=== PATIENT | female | born 2000 | race Caucasian/White ===

== ENCOUNTER 2024-05-06 00:25 | Inpatient (IN) | payer BC ==
[2024-05-06] MEDS ORDERED: Carboprost Tromethamine 250 MCG/1 mL Vial IM PRN ×2 (02:04→20:14)
[2024-05-06] MEDS ORDERED: Sodium Chloride 0.9% 10 ML Syringe FLUSH PRN ×2 (02:04→20:14)
[2024-05-06] MEDS ORDERED: Misoprostol 200 MCG Tab PO PRN (02:04)
[2024-05-06] MEDS ORDERED: Sodium Chloride 0.9% 2.5 ML Syringe FLUSH PRN ×2 (02:04→20:14)
[2024-05-06] MEDS ORDERED: Lidocaine 1% 50 ML MDV INJECT PRN (02:04)
[2024-05-06] MEDS ORDERED: Water For Irrigation,Sterile 1,000 ML Container IRR PRN (02:04)
[2024-05-06] MEDS ORDERED: Methylergonovine 0.2 MG/1 ML Amp IM PRN (02:04)
[2024-05-06] MEDS ORDERED: Sodium Chloride 0.9% 20 ML SDV IV PRN (02:04)
[2024-05-06] MEDS ORDERED: Tranexamic Acid IN NACL,ISO-OS 1,000 MG in Premix Bag 1 BAG IV PRN (02:04)
[2024-05-06] MEDS ORDERED: Terbutaline 1 MG/ML SDV SUBCUT PRN (02:04)
[2024-05-06] MEDS ORDERED: Oxytocin/0.9 % Sodium Chloride 30 UNIT/500 ML BAG IV SCH ×2 (02:15→20:15)
[2024-05-06] MEDS: Butorphanol 2 MG/ML SDV IVPUSH PRN (02:39)
[2024-05-06] MEDS: Lactated Ringers 1,000 ML IV SCH (02:48)
[2024-05-06] MEDS: Oxytocin/0.9 % Sodium Chloride 30 UNIT/500 ML BAG IV SCH (02:51)
[2024-05-06 03:59] LABS: HEMATOCRIT 37.7 % (37.0-47.0); HEMOGLOBIN 12.4 g/dL (12.0-16.0); MEAN CORPUSCULAR HEMOGLOBIN 26.4 pg (28.0-32.0); MEAN CORPUSCULAR HGB CONC 32.9 g/dL (32.0-36.0); MEAN CORPUSCULAR VOLUME 80.2 fL (83.0-99.0); PLATELET COUNT,PLT 297 K/uL (150-400); WHITE BLOOD CELL COUNT,WBC 14.39 K/uL (3.9-11.3)
[2024-05-06] MEDS: Ondansetron 4 MG/2 ML SDV IVPUSH PRN (06:43)
[2024-05-06] MEDS: Ropivacaine HCl/PF 400 MG in Premix Bag 1 BAG EPIDUR SCH (07:03)
[2024-05-06] MEDS ORDERED: ePHEDrine 50 MG/ML SDV IVPUSH PRN (07:21)
[2024-05-06] MEDS ORDERED: Phenylephrine HCl In 0.9% NaCl 1 MG/10 ML Syringe IVPUSH PRN ×2 (07:21→20:12)
[2024-05-06] MEDS ORDERED: ePHEDrine 50 MG/ML SDV IM PRN (07:22)
[2024-05-06] MEDS ORDERED: dexmedeTOMIDine HCl 200 MCG/2 ML SDV EPIDUR SCH (07:30)
[2024-05-06] MEDS: Phenylephrine HCl In 0.9% NaCl 1 MG/10 ML Syringe ONE (10:15)
[2024-05-06] MEDS: Bupivacaine 0.5% 10 ML SDV INJECT ONE (10:16)
[2024-05-06] MEDS: Bupivacaine 0.5% 10 ML SDV ONE (10:16)
[2024-05-06] MEDS: Ropivacaine HCl/PF 200 ML ONE (10:16)
[2024-05-06] MEDS: Sodium Chloride 0.9% 1,000 ML IRR ONE (15:30)
[2024-05-06] MEDS ORDERED: Oxytocin 10 Units/1 ML SDV ONE (18:20)
[2024-05-06] MEDS ORDERED: EPINEPHrine 1 MG/1 ML Amp ONE (18:20)
[2024-05-06] MEDS ORDERED: Ketorolac 30 MG/ML SDV ONE (18:20)
[2024-05-06] MEDS ORDERED: Morphine PF 10 MG/10 ML SDV ONE (18:20)
[2024-05-06] MEDS ORDERED: Ropivacaine 0.5% 5 MG/ML 30 ML SDV ONE (18:20)
[2024-05-06] MEDS ORDERED: Bupivacaine 0.5% 10 ML SDV ONE (18:20)
[2024-05-06] MEDS ORDERED: Bupivacaine 0.25% 30 ML SDV ONE (18:20)
[2024-05-06] MEDS ORDERED: Ondansetron 4 MG/2 ML SDV ONE (18:20)
[2024-05-06] MEDS ORDERED: fentaNYL 100 MCG/2 ML SDV ONE (18:20)
[2024-05-06] MEDS ORDERED: ceFAZolin 1 GM Vial ONE (18:20)
[2024-05-06] MEDS ORDERED: Lidocaine 2% 5 ML SDV ONE ×3 (18:20→19:56)
[2024-05-06] MEDS ORDERED: Phenylephrine HCl In 0.9% NaCl 1 MG/10 ML Syringe ONE ×2 (18:46→19:38)
[2024-05-06] MEDS ORDERED: Azithromycin 500 MG Vial ONE (18:47)
[2024-05-06] MEDS ORDERED: Metoclopramide 10 MG/2 ML SDV IVPUSH PRN (20:12)
[2024-05-06] MEDS ORDERED: Morphine 2 MG/ML SYRINGE IVPUSH PRN (20:12)
[2024-05-06] MEDS ORDERED: Acetaminophen/oxyCODONE 325-5 MG Tab PO PRN (20:12)
[2024-05-06] MEDS ORDERED: droPERidol 5 MG/2 ML SDV IVPUSH PRN (20:12)
[2024-05-06] MEDS ORDERED: Ondansetron 4 MG/2 ML SDV IVPUSH PRN ×3 (20:12→20:14)
[2024-05-06] MEDS ORDERED: Naloxone 0.4 MG/ML SDV IVPUSH PRN (20:12)
[2024-05-06] MEDS ORDERED: Albuterol 0.083% 2.5 MG/3 ML Neb Soln NEB PRN (20:12)
[2024-05-06] MEDS ORDERED: HYDROmorphone 1 MG/ML Syringe IVPUSH PRN (20:12)
[2024-05-06] MEDS ORDERED: fentaNYL 50 MCG/ML SDV IVPUSH PRN (20:12)
[2024-05-06] MEDS ORDERED: fentaNYL 100 MCG/2 ML SDV IVPUSH PRN (20:12)
[2024-05-06] MEDS ORDERED: diphenhydrAMINE 50 MG/ML SDV IVPUSH PRN (20:12)
[2024-05-06] MEDS ORDERED: Nalbuphine 10 MG/1 ML Vial IVPUSH PRN (20:12)
[2024-05-06] MEDS ORDERED: oxyCODONE 5 MG Tab PO PRN (20:14)
[2024-05-06] MEDS ORDERED: Misoprostol 200 MCG Tab RECTAL PRN (20:14)
[2024-05-06] MEDS ORDERED: Tranexamic Acid 1,000 MG in Sodium Chloride 0.9% 100 ML IV PRN (20:14)
[2024-05-06] MEDS ORDERED: Methylergonovine 0.2 MG/1 ML Amp IM ONE (20:14)
[2024-05-06] MEDS ORDERED: Measles, Mumps & Rubella Vaccine 0.5 ML SDV SUBCUT ONE (20:14)
[2024-05-06] MEDS ORDERED: Acetaminophen 500 MG Tab PO SCH (20:30)
[2024-05-06] MEDS: Acetaminophen 1,000 MG in Premix Bag 1 BAG IV SCH (20:54)
[2024-05-06] MEDS ORDERED: metroNIDAZOLE 250 MG Tab PO SCH (21:00)
[2024-05-06] MEDS ORDERED: Cephalexin 500 MG Cap PO SCH (22:00)
[2024-05-06] MEDS: Docusate Sodium 100 MG Cap PO SCH (22:25)
[2024-05-07] MEDS: metroNIDAZOLE 250 MG Tab PO SCH (00:32)
[2024-05-07] MEDS: Ketorolac 30 MG/ML SDV IVPUSH SCH (00:32)
[2024-05-07] MEDS: Cephalexin 500 MG Cap PO SCH (00:32)
[2024-05-07 05:24] LABS: BASOPHILS ABSOLUTE AUTO 0.02 K/uL (0.00-0.20); BASOPHILS PERCENT AUTO 0.1 % (0.0-1.0); HEMATOCRIT 28.5 % (37.0-47.0); HEMOGLOBIN 9.3 g/dL (12.0-16.0); IMMATURE GRAN ABSOLUTE AUTO 0.06 K/uL (0.00-0.05); IMMATURE GRAN PERCENT AUTO 0.4 % (0.0-0.4); LYMPHOCYTES ABSOLUTE AUTO 1.49 K/uL (1.00-4.80); LYMPHOCYTES PERCENT AUTO 10.2 % (24.0-44.0); MEAN CORPUSCULAR HEMOGLOBIN 26.7 pg (28.0-32.0); MEAN CORPUSCULAR HGB CONC 32.6 g/dL (32.0-36.0); MEAN CORPUSCULAR VOLUME 81.9 fL (83.0-99.0); MEAN PLATELET VOLUME 9.9 fL (9.4-12.3); MONOCYTES ABSOLUTE AUTO 0.68 K/uL (0.00-0.80); MONOCYTES PERCENT AUTO 4.7 % (0.0-8.0); NEUTROPHILS ABSOLUTE AUTO 12.29 K/uL (1.80-7.70); NEUTROPHILS PERCENT AUTO 84.6 % (41.0-71.0); PLATELET COUNT,PLT 202 K/uL (150-400); RED BLOOD CELL COUNT 3.48 M/uL (4.10-5.30); WHITE BLOOD CELL COUNT,WBC 14.54 K/uL (3.9-11.3)
[2024-05-07] MEDS: Acetaminophen 500 MG Tab PO SCH (15:23)
[2024-05-07] MEDS: Ketorolac 30 MG/ML SDV IM ONE (18:00)
[2024-05-07] MEDS ORDERED: Sodium Ferric Gluconate Cmplex 125 MG in Sodium Chloride 0.9% 100 ML IV SCH (18:00)
[2024-05-07] MEDS ORDERED: oxyCODONE 5 MG Tab PO PRN (20:14)
[2024-05-08] MEDS: Ibuprofen 800 MG Tab PO SCH (00:03)
== END 2024-05-08 16:25 | disposition home or self-care (01) | DRG 540 ==
LOC: MW.OBCHECK 00:25 → MW.OB 00:26 → MW.OBCHECK 01:18 → OBSVTOIN 19:09 → MW.OB 05-07 00:58
PROVIDERS: ADMIT Obstetrics & Gynecology; ATTEND Obstetrics & Gynecology
PROC: 3E0R3BZ Introduction of Anesthetic Agent into Spinal Canal, Percutaneous Approach (ICD-10-PCS; 2024-05-06)
PROC: 00HU33Z Insertion of Infusion Device into Spinal Canal, Percutaneous Approach (ICD-10-PCS; 2024-05-06)
PROC: 10D00Z1 Extraction of Products of Conception, Low, Open Approach (ICD-10-PCS; principal; 2024-05-06 19:00)
DX: O48.0 Post-term pregnancy (principal); O99.214 Obesity complicating childbirth; O90.81 Anemia of the puerperium; Z37.0 Single live birth; O77.0 Labor and delivery complicated by meconium in amniotic fluid; O76 Abnormality in fetal heart rate and rhythm complicating labor and delivery; O32.8XX0 Maternal care for other malpresentation of fetus, not applicable or unspecified; Z3A.40 40 weeks gestation of pregnancy
CPT/HCPCS: 01968; 36415; 59025; 59514; 64488; 85025; 85027; 86592; 86850; 86900; 86901; A9270-GY; J0131; J0171; J0456; J0595; J0665; J0690; J1100; J1885; J2274; J2371; J2405; J2590; J2795; J3010; J3490; J7030; J7120